=== PATIENT | male | born 1985 | race Caucasian/White ===

== ENCOUNTER 2023-05-04 01:39 | Emergency (ER) | payer OTHER ==
[2023-05-04 01:49] VITALS: BP 121/74; PULSE 100; RESP 18; TEMP 97.9; BMI 29.2
[2023-05-04] MEDS ORDERED: KETOROLAC TROMETHAMINE 30 MG/1 ML VIAL IM ONE (03:18)
[2023-05-04] MEDS ORDERED: ACETAMINOPHEN 500 MG TABLET (FP) PO ONE (03:18)
[2023-05-04] MEDS ORDERED: KETOROLAC TROMETHAMINE 30 MG/1 ML VIAL ONE (04:06)
[2023-05-04] MEDS ORDERED: ACETAMINOPHEN 325 MG TABLET (FP) ONE (04:06)
== END 2023-05-04 05:29 | disposition home or self-care (01) ==
LOC: JER 01:39
PROC: 3E0233Z Introduction of Anti-inflammatory into Muscle, Percutaneous Approach (ICD-10-PCS; principal; 2023-05-04)
DX: S80.211A Abrasion, right knee, initial encounter (principal); W01.198A Fall on same level from slipping, tripping and stumbling with subsequent striking against other object, initial encounter; Y92.9 Unspecified place or not applicable
CPT/HCPCS: 73562-TC-RT-FY; 99284-25

== ENCOUNTER 2024-07-19 18:49 | Emergency (ER) | payer OTHER ==
[2024-07-19 19:06] VITALS: BP 131/74; PULSE 72; RESP 18; TEMP 98; BMI 27.5
== END 2024-07-19 20:01 | disposition left against medical advice (07) ==
LOC: JER 18:49
DX: R07.9 Chest pain, unspecified (principal)
CPT/HCPCS: 93005; 93010; 99283-25

== ENCOUNTER 2024-09-15 16:03 | Observation (INO) | payer OTHER ==
[2024-09-15 17:52] LABS: BASO % 0.7 % (0-2.0); EOS % 2.6 % (0-4.5); HEMATOCRIT 48.2 % (35.4-49); HEMOGLOBIN 16.5 GM/dL (11.7-16.9); LYMPH % 33.9 % (8-40); MCH 29.4 pg (25.7-33.7); MCHC 34.1 g/dl (32.0-35.9); MEAN CELL VOLUME 86.1 fl (80-96); MEAN PLT VOLUME 7.7 fl (7.5-11.1); MONO % 11.9 % (3.8-10.2); NEUT % 50.9 % (42.8-82.8); PLATELET COUNT 228 10^3/uL (134-434); RDW 12.8 % (11.9-15.9); WHITE BLOOD COUNT 6.3 K/mm3 (4.0-10.0)
[2024-09-15 18:00] LABS: INR 0.95 (0.83-1.09); PROTHROMBIN TIME (PATIENT) 10.8 SEC (9.7-13.0)
[2024-09-15 18:02] LABS: ACTIVATED PTT 32.3 SECONDS (25.2-36.5)
[2024-09-15] MEDS ORDERED: ASPIRIN 81 MG CHEWABLE TABLETS ONE (18:06)
[2024-09-15 18:11] LABS: POTASSIUM 3.9 mmol/L (3.5-5.1)
[2024-09-15 18:13] LABS: BLOOD UREA NITROGEN 12.4 mg/dL (7-18); CALCIUM 9.9 mg/dL (8.5-10.1); MAGNESIUM 2.3 mg/dL (1.8-2.4)
[2024-09-15] MEDS: ASPIRIN 81 MG CHEWABLE TABLETS PO ONE (18:13)
[2024-09-15 18:14] LABS: ALBUMIN 4.6 g/dl (3.4-5.0)
[2024-09-15 18:16] LABS: CREATININE 1.2 mg/dL (0.55-1.3)
[2024-09-15] MEDS ORDERED: ONDANSETRON 4 MG/2 ML VIAL ONE (18:16)
[2024-09-15 18:18] LABS: BILIRUBIN,TOTAL 0.6 mg/dL (0.2-1); TOT PROT 7.5 g/dl (6.4-8.2)
[2024-09-15] MEDS: SODIUM CHLORIDE 0.9% 500 ML INFUS.BAG IV ONE (18:20)
[2024-09-15 18:22] LABS: N-TERMINAL BNP 30.8 pg/ml (5-125)
[2024-09-15 19:08] LABS: HIV INTERPRETATION NEGATIVE (NEGATIVE)
[2024-09-15] MEDS: ONDANSETRON 4 MG/2 ML VIAL IVPUSH ONE (19:08)
[2024-09-15 20:47] LABS: CHOLESTEROL 211 mg/dL (50-200)
[2024-09-15 20:48] LABS: LDL CHOLESTEROL (ONLY SJRH) 134 mg/dL (5-100)
[2024-09-15 20:49] LABS: HDL CHOLESTEROL 53 mg/dL (40-60)
[2024-09-15 22:07] VITALS: BMI 25.2
[2024-09-16 07:42] LABS: HEMATOCRIT 45.7 % (35.4-49); HEMOGLOBIN 15.4 GM/dL (11.7-16.9); MCH 29.4 pg (25.7-33.7); MCHC 33.6 g/dl (32.0-35.9); MEAN CELL VOLUME 87.4 fl (80-96); MEAN PLT VOLUME 8.2 fl (7.5-11.1); PLATELET COUNT 204 10^3/uL (134-434); RBC 5.23 M/mm3 (4.00-5.60); RDW 12.5 % (11.9-15.9); WHITE BLOOD COUNT 6.7 K/mm3 (4.0-10.0)
[2024-09-16 08:08] LABS: CREATININE 0.9 mg/dL (0.55-1.3)
[2024-09-16 08:10] LABS: ALBUMIN 4.2 g/dl (3.4-5.0); BILIRUBIN,TOTAL 0.9 mg/dL (0.2-1); BLOOD UREA NITROGEN 10.6 mg/dL (7-18); PHOSPHOROUS 3.9 mg/dL (2.5-4.9); TOT PROT 6.9 g/dl (6.4-8.2)
[2024-09-16 08:14] LABS: CALCIUM 9.5 mg/dL (8.5-10.1)
[2024-09-16 08:15] LABS: MAGNESIUM 2.4 mg/dL (1.8-2.4)
[2024-09-16 08:34] LABS: PH,URINE 5.5 (5.0-8.0); URINE APPEARANCE CLEAR; URINE BILIRUBIN NEGATIVE (NEGATIVE); URINE COLOR YELLOW; URINE GLUCOSE (UA) NEGATIVE (NEGATIVE); URINE KETONE NEGATIVE (NEGATIVE); URINE LEUK ESTERASE NEGATIVE (NEGATIVE); URINE NITRITE NEGATIVE (NEGATIVE); URINE PROTEIN NEGATIVE (NEGATIVE); URINE UROBILINOGEN 0.2 mg/dL (0.2-1.0)
[2024-09-16 15:02] VITALS: BP 121/76; PULSE 65; RESP 20; TEMP 98.4
[2024-09-16 15:03] LABS: URINE BARBITURATES NEGATIVE (NEGATIVE)
[2024-09-16 15:04] LABS: COCAINE, UR NEGATIVE (NEGATIVE); OPIATES, URI NEGATIVE (NEGATIVE); PHENCYCLIDINE,URINE NEGATIVE (NEGATIVE); URINE AMPHETAMINES NEGATIVE (NEGATIVE); URINE BENZODIAZEPINES NEGATIVE (NEGATIVE)
[2024-09-16] MEDS: MAGNESIUM HYDROX 2400MG/30ML ORAL SUSPENSION 30 ML CUP PO ONE (15:17)
[2024-09-16 15:22] LABS: METHADONE, UR NEGATIVE (NEGATIVE)
[2024-09-16] MEDS ORDERED: OMEGA-3 ACID ETHYL ESTERS (FATTY-ACIDS) 1 GM CAPSULE (FP) PO SCH (22:00)
[2024-09-17] MEDS ORDERED: ASPIRIN COATED 81 MG TABLET.EC PO SCH (10:00)
== END 2024-09-16 15:49 | disposition home or self-care (01) ==
LOC: JER 16:03 → JERBED 19:24 → J4W 21:32
PROVIDERS: ADMIT Internal Medicine; ATTEND Internal Medicine
PROC: 3E033GC Introduction of Other Therapeutic Substance into Peripheral Vein, Percutaneous Approach (ICD-10-PCS; principal; 2024-09-15)
PROC: 3E0337Z Introduction of Electrolytic and Water Balance Substance into Peripheral Vein, Percutaneous Approach (ICD-10-PCS; 2024-09-15)
DX: R07.89 Other chest pain (principal); E78.5 Hyperlipidemia, unspecified; I10 Essential (primary) hypertension; Z87.891 Personal history of nicotine dependence
CPT/HCPCS: 36415; 71046-TC-FY; 72125-TC; 80053; 80061; 80307; 81003; 83690; 83735; 83880; 84100; 84443; 84484; 85025; 85027; 85610; 85730; 86803; 86850; 86900; 86901; 87389; 93005; 93010; 93308; 96374; 99285-25; G0378